=== PATIENT | female | born 1965 | race Caucasian/White ===

== ENCOUNTER 2018-07-20 21:34 | Emergency (ER) | payer OTHER ==
[~2018-07-20] VITALS: Ht 152.4 cm; Wt 86.2 kg
[~2018-07-20 21:34] MED LIST: NOHOMEMEDICATIONS
[2018-07-20 23:36] VITALS: BP 176/95
== END 2018-07-20 23:37 | disposition home or self-care (01) ==
LOC: M.ERS 21:34
DX: S86.911A Strain of unspecified muscle(s) and tendon(s) at lower leg level, right leg, initial encounter (principal); X58.XXXA Exposure to other specified factors, initial encounter; Y93.89 Activity, other specified; Y92.89 Other specified places as the place of occurrence of the external cause; Y99.8 Other external cause status; Z90.49 Acquired absence of other specified parts of digestive tract; Z98.890 Other specified postprocedural states; Z88.0 Allergy status to penicillin; Z88.5 Allergy status to narcotic agent

== ENCOUNTER → 2021-05-02 | Outpatient (CLI) | payer OTHER | LOC: M.RAD 08:00 | PROVIDERS: ATTEND Internal Medicine | DX: Z12.31 Encounter for screening mammogram for malignant neoplasm of breast (principal) ==